=== PATIENT | male | born 1945 | race African-American/Black ===

== ENCOUNTER → 2020-07-27 14:31 | Outpatient (BNVA) | payer OTHER, MEDICARE, SELFPAY | PROVIDERS: PCP Internal Medicine; Visit Provider Urology | DX: N52.9 Male erectile dysfunction, unspecified (principal) | CPT/HCPCS: 51798; 81002; 99202 ==

== ENCOUNTER → 2020-10-25 14:18 | Outpatient (BNVA) | payer MEDICARE, SELFPAY | PROVIDERS: PCP Internal Medicine; Visit Provider Urology | DX: Z13.89 Encounter for screening for other disorder (principal) | CPT/HCPCS: 99212 ==

== ENCOUNTER → 2022-01-29 13:29 | Outpatient (BNVA) | payer MEDICARE, SELFPAY | PROVIDERS: PCP Internal Medicine; Visit Provider Urology | DX: N52.9 Male erectile dysfunction, unspecified (principal); N32.0 Bladder-neck obstruction | CPT/HCPCS: 99212 ==

== ENCOUNTER → 2022-05-14 14:10 | Outpatient (BNVA) | payer MEDICARE, SELFPAY | PROVIDERS: PCP Internal Medicine; Visit Provider Urology | DX: N32.0 Bladder-neck obstruction (principal); N52.9 Male erectile dysfunction, unspecified | CPT/HCPCS: Q3014 ==

== ENCOUNTER 2023-05-14 16:01 | Outpatient (REF) | payer MEDICARE, SELFPAY | END 2023-05-14 16:02 | disposition home or self-care (01) | LOC: HO.CHCLDS 16:01 | PROVIDERS: Visit Provider Urology | DX: Z12.5 Encounter for screening for malignant neoplasm of prostate (principal); N32.0 Bladder-neck obstruction | CPT/HCPCS: 36415; 84153 ==

== ENCOUNTER 2023-05-15 13:50 | Outpatient (AMB) | payer MEDICARE, SELFPAY ==
--- NOTE | 2023-05-15 14:19 | A.OFFVIS_ITS ---
Intake Intake Visit Reasons: 1yr follow/PSA Intake Note: Patient is present for psa follow up Allergies No Known Allergies Allergy (Verified 05/14/22 14:11) Medication List - Last Reconciled 05/15/23 by Sixto Brandon MD albuterol sulfate 90 mcg/actuation 0 mcg inhalation donepezil 5 mg PO BEDTIME finasteride 5 mg PO DAILY fluticasone propion-salmeterol 250-50 mcg/dose inhalation levetiracetam 500 mg PO BID lisinopril 20 mg PO DAILY lorazepam mg PO metoprolol succinate ER 50 mg PO DAILY omeprazole 40 mg PO QAM oxybutynin chloride 5 mg PO DAILY rosuvastatin 40 mg PO DAILY tadalafil 5 mg PO DAILY 90 days tiotropium bromide 1 cap inhalation DAILY triamcinolone acetonide 0.1% topical BID HPI HPI Comments History of Present Illness Details Edil is very pleasant male. He is a patient of Dr. Finnegan. He seen for the following urologic conditions - erectile dysfunction Twelve month follow-up Good response to daily tadalafil Helpful for both erections and for bladder emptying He would like to continue Prescriptions provided 12 month follow-up PSA Erectile dysfunction Prior good success with Cialis No longer has insurance 5 mg tadalafil daily PSA 01/20 1.8, 05/23 3.3 PFSH Medical History Frequent urination Review of Systems Const Denies chills and Denies fever(s) Card Reports no additional complaints and Denies syncope Resp Denies cough GI Denies abdominal pain and Denies heartburn Reports as per HPI and Denies change in libido Neuro Denies syncope Psych Denies change in libido Endo Denies change in libido Physical Exam Const General: cooperative, healthy appearing, comfortable and no acute distress Orientation/consciousness: patient oriented x3 HEENT Face and sinus: Yes normal facial exam Mouth: moist mucous membranes Neck Neck: Yes normal visual inspection, Yes full ROM and Yes trachea midline Chest Chest palpation & inspection: normal inspection of the chest Resp Effort & Inspection: normal respiratory effort, able to speak in complete sentences and no respiratory distress GI Inspection: Yes normal to inspection Back/Spine/Pelvis Cervical Spine: normal cervical lordosis Thoracic/Lumbar Spine: thoracic and lumbar spine normal to inspection Skin General skin exam: no rashes or lesions noted Neuro General: patient oriented x3, gait normal, tone normal and moves all extremities Extrem General: Yes normal to inspection and Yes capillary refill normal Assessment & Plan Assessment & Plan (1) Bladder outlet obstruction: Code(s): N32.0 - Bladder-neck obstruction Plan Twelve month follow-up Refill prescription Patient Instructions: Imaging studies, laboratory and physical exam results were discussed and reviewed in detail. No major barriers to patient understanding were identified. An opportunity to ask questions regarding the treatment plan was provided. All questions were answered. The patient expressed understanding and agreement with the above treatment plan. The patient is aware they should contact our office by phone for worsening of their current condition or the appearance of new urologic symptoms. Compliance is encouraged with any medications and followup testing that is ordered. It is a privilege to participate in the urologic care of your patient. If you have any questions or concerns regarding treatment for the above conditions, or other urologic issues, please do not hesitate to contact me. The office telephone contact is [phone]. This note is constructed using voice recognition software. While every effort has been made to ensure accuracy park worker supervisor errors may have been included. Yours sincerely, Dr Sixto Brandon MD, JUNIOR [facility] - Urology Providers of Expert, Compassionate Care for the Genitourinary System Coding Level of Care Code Est Pt Level 4 (13492) Diagnoses Bladder outlet obstruction N32.0
== END 2023-05-15 14:35 | disposition home or self-care (01) ==
LOC: HO.HUSH 13:50
PROVIDERS: PCP Internal Medicine; Visit Provider Urology
DX: N32.0 Bladder-neck obstruction (principal)
CPT/HCPCS: 99213

== ENCOUNTER → 2023-05-15 13:50 | Outpatient (BNVA) | payer MEDICARE, SELFPAY | PROVIDERS: PCP Internal Medicine; Visit Provider Urology | DX: N32.0 Bladder-neck obstruction (principal) | CPT/HCPCS: 99212 ==

== ENCOUNTER 2024-06-22 13:20 | Outpatient (AMB) | payer MEDICARE, SELFPAY ==
--- NOTE | 2024-06-22 13:23 | A.OFFVIS_ITS ---
Intake Visit Reasons: one year followup (erectile dysfunction) Intake Note: Patient is present for Telephone follow up Urology Medication: Tadalafil, oxybutynin, finasteride ALLERGIES:NONE Blood Thinner: None Cupola Operator Insulation Required: No Allergies No Known Allergies Allergy (Verified 06/22/24 13:34) HPI Comments Details: Edil is very pleasant male. He is a patient of Dr. Finnegan. He seen for the following urologic conditions - erectile dysfunction - lower urinary tract symptoms Twelve month follow-up Continue good response to daily tadalafil He is particularly grateful for bladder stabilization during the night Helpful for both erections and for bladder emptying 12 month follow-up Erectile dysfunction Prior good success with Cialis No longer has insurance 5 mg tadalafil daily PSA 01/20 1.8, 05/23 3.3 PFSH Medical History Frequent urination Review of Systems Const Denies chills and Denies fever(s) Card Reports no additional complaints and Denies syncope Resp Denies cough GI Denies abdominal pain and Denies heartburn Reports as per HPI and Denies change in libido Neuro Denies syncope Psych Denies change in libido Endo Denies change in libido Physical Exam Const General: cooperative, healthy appearing, comfortable and no acute distress Orientation/consciousness: patient oriented x3 HEENT Face and sinus: Yes normal facial exam Mouth: moist mucous membranes Neck Neck: Yes normal visual inspection, Yes full ROM and Yes trachea midline Chest Chest palpation & inspection: normal inspection of the chest Resp Effort & Inspection: normal respiratory effort, able to speak in complete sentences and no respiratory distress GI Inspection: Yes normal to inspection Back/Spine/Pelvis Cervical Spine: normal cervical lordosis Thoracic/Lumbar Spine: thoracic and lumbar spine normal to inspection Skin General skin exam: no rashes or lesions noted Neuro General: patient oriented x3, gait normal, tone normal and moves all extremities Extrem General: Yes normal to inspection and Yes capillary refill normal Results AMB Urinalysis, Automated UA Leukoctes 0 Jarett/uL Last Edit by RAVI Sawyer on 06/22/24 13:36 UA Nitrite Negative Last Edit by RAVI Sawyer on 06/22/24 13:36 UA Urobilinogen 0.2 mg/dL Last Edit by RAVI Sawyer on 06/22/24 13:3 6 UA Protein 30 mg/dL Last Edit by RAVI Sawyer on 06/22/24 13:36 UA pH 6.0 Last Edit by RAVI Sawyer on 06/22/24 13:36 UA Blood 0 Balwinder/uL Last Edit by RAVI Sawyer on 06/22/24 13:36 UA Specific [place] 1.020 Last Edit by RAVI Sawyer on 06/22/24 13: 36 UA Ketone Negative Last Edit by RAVI Sawyer on 06/22/24 13:36 UA Bilirubin 1 mg/dL Last Edit by RAVI Sawyer on 06/22/24 13:36 UA Glucose 0 mg/dL Last Edit by [facility]oni Lopez [facility] on 06/22/24 13:36 Results Reviewed Results Reviewed: Laboratory Last Values Urine pH (Auto) 6.0 06/22/24 13:36 Specific [place] (Auto) 1.020 06/22/24 13:36 Urine Protein (Auto) 30 mg/dL 06/22/24 13:36 Glucose (UA)(Auto) 0 mg/dL 06/22/24 13:36 Urine Ketones (Auto) Negative 06/22/24 13:36 Urine Blood (Auto) 0 Balwinder/uL 06/22/24 13:36 Urine Nitrite (Auto) Negative 06/22/24 13:36 Urine Bilirubin (Auto) 1 mg/dL 06/22/24 13:36 Urine Urobilinogen (Auto) 0.2 mg/dL 06/22/24 13:36 Leukocyte Esterase (Auto) 0 Jarett/uL 06/22/24 13:36 Assessment & Plan Assessment & Plan (1) Bladder outlet obstruction: Code(s): N32.0 - Bladder-neck obstruction Category: Medical Plan Refill medication Twelve month follow-up Orders: Orders AMB Urinalysis Automated Today Z13.9 - Encounter for screening, unspecified Prostate Specific Antigen 364 Days N32.0 - Bladder-neck obstruction Medications: Refilled tadalafil Take in morning 5 mg PO DAILY 90 days 90 tabs 3RF Bladder stability N32.0 - Bladder-neck obstruction Patient Instructions: Imaging studies, laboratory and physical exam results were discussed and reviewed in detail. No major barriers to patient understanding were identified. An opportunity to ask questions regarding the treatment plan was provided. All questions were answered. The patient expressed understanding and agreement with the above treatment plan. The patient is aware they should contact our office by phone for worsening of their current condition or the appearance of new urologic symptoms. Compliance is encouraged with any medications and followup testing that is ordered. It is a privilege to participate in the urologic care of your patient. If you have any questions or concerns regarding treatment for the above conditions, or other urologic issues, please do not hesitate to contact me. The office telephone contact is [phone]. This note is constructed using voice recognition software. While every effort has been made to ensure accuracy transcription manager errors may have been included. Yours sincerely, Dr Sixto Brandon MD, JUNIOR [facility] - Urology Providers of Expert, Compassionate Care for the Genitourinary System Coding Level of Care Code Est Pt Level 4 (45835) Diagnoses Bladder outlet obstruction N32.0
--- OUTSIDE RECORDS SUMMARY | 2024-06-22 15:27 | XMS_ITS | Clinical Summary ---
Author Organization [facility] Address [address] [place] [address] Care Team Providers Care Neon Tube Pumper Name Role Phone Pati Finnegan MD Primary Care Provider [phone] Family History Medical History Relation Name Comments No Known Problems Father No Known Problems Mother Relation Name Status Comments Father Mother Social History Tobacco Use Types Packs/Day Years Used Date Smoking Tobacco: Former Smokeless Tobacco: Never Alcohol Use Standard Drinks/Week Comments Yes 1 (1 standard drink = 0.6 oz pur e alcohol) Sex and Gender Information Value Date Recorded Sex Assigned at Not on file Gender Identity Not on file Sexual Orientation Not on file Obstetrics History Last Filed Vital Signs Vital Sign Reading Time Taken Comments Blood Pressure 130/72 07/28/2022 10:09 AM EST Pulse 81 07/28/2022 9:32 AM EST Temperature - - Respiratory Rate - - Oxygen Saturation - - Inhaled Oxygen Concentration - - Weight 74.6 kg (164 lb 6.4 oz) 07/28/2022 9:32 A M EST Height 170.2 cm (5' 7 ) 07/28/2022 9:32 AM EST Body Mass Index 25.75 07/28/2022 9:32 AM EST Plan of Treatment Health Maintenance Due Date Last Done Comments Pneumococcal Vaccine: 65+ Ye ars (1 of 2 - PCV) 1949 Zoster Vaccines (1 of 2) 1993 RSV Immunization Patients 60 + Years Old (1 - 1-dose 75+ series) 2018 Cholesterol Screening (Lipid Panel) 05/10/2022 Depression Screening 05/10/2022 Falls Risk Assessment 05/10/2022 Social Influencers of Health Screening 05/10/2022 Hypertension/CHF/CAD Annual BMP Blood Test 05/14/2022 COVID-19 Vaccine ( - 2023-2 5 season) 2024 Influenza Vaccine (#1) 2024 DTaP,Tdap,and Td Vaccines (2 - Td or Tdap) 01/18/2031 01/18/2021 HIB Vaccines Aged Out No longer eligi ble based on patient's age to complete this topic HPV Vaccines Aged Out No longer eligi ble based on patient's age to complete this topic Hepatitis A Vaccines Aged Out No long er eligible based on patient's age to complete this topic Hepatitis B Vaccines Aged Out No long er eligible based on patient's age to complete this topic IPV Vaccines Aged Out No longer eligi ble based on patient's age to complete this topic MMR Vaccines Aged Out No longer eligi ble based on patient's age to complete this topic Meningococcal ACWY Vaccine Aged Out N o longer eligible based on patient's age to complete this topic RSV Immunization Patients Un ilya 20 months Aged Out No longer eligible b ased on patient's age to complete this topic Varicella Vaccines Aged Out No longer eligible based on patient's age to complete this topic Care Teams Neon Tube Pumper Relationship Specialty Start Date End Date Pati Finnegan MD PCP - General Internal Medicine 03/01/21
== END 2024-06-22 13:49 | disposition home or self-care (01) ==
PROVIDERS: PCP Internal Medicine; Visit Provider Urology
DX: Z13.9 Encounter for screening, unspecified (principal); N32.0 Bladder-neck obstruction
CPT/HCPCS: 99214

== ENCOUNTER → 2024-06-22 13:20 | Outpatient (BNVA) | payer MEDICARE, SELFPAY | PROVIDERS: PCP Internal Medicine; Visit Provider Urology | DX: N52.9 Male erectile dysfunction, unspecified (principal); N32.0 Bladder-neck obstruction | CPT/HCPCS: 81003; 99212 ==